=== PATIENT | female | born 1950 | race Caucasian/White ===

== ENCOUNTER 2018-04-23 20:00 | Emergency (ER) | payer MEDICARE, OTHER, SELFPAY ==
[2018-04-23 20:01] VITALS: BP 171/108; PULSE 112; RESP 18; TEMP 36.4; O2SAT 97; BMI 43.5
--- NOTE | 2018-04-23 20:18 | ED.VISSUMM ---
- ER Visit Summary Date of Service: 04/23/18 Chief Complaint: Holding back of right knee concern for DVT History of Present Illness: The patient is a 68 F with no past medical history who presents with pain behind the right knee. She had a long distance flight to [place] last week. She returned yesterday. She complains of pain in the posterior aspect of the right knee. She denies shortness of breath. She denies difficulty breathing. Denies pleuritic chest pain or any type of chest pain. She has no history of PE or DVT. She has no other complaints Physical Examination: Vital signs remarkable for an elevated blood pressure 171/108. Heart rate is document of 112. She appears no distress. She is afebrile. There is no swelling, asymmetry or discoloration of the right lower extremity compared to left. There is no leg vein distention, palpable cords toes on the diffusion deep venous system. She has tenderness over the short and long head of the biceps for Magdiel muscle. She complains of pain with movement in that area. The patella is not ballotable. There is no effusion. She has full extension and flexion. There is no motor weakness with flexion extension at the knee. Distal pulses are palpable. Test Results: None Emergency Department Course and Treatment: Well score for DVT is -2. Since she has tenderness specifically over the long and short head the biceps for Magdiel tendon treatment is anti-inflammatory ice and follow-up with physician. Her blood pressure is elevated and will need reassessed in 1-2 weeks and she is asymptomatic. Since she is asymptomatic no testing is indicated. Treatment Plan: Rest, ice and anti-inflammatory and follow-up with PCP Disposition: Discharged to home with Impression: Tendinitis biceps for Magdiel right lower extremity This note was generated with [employer] dictation software. It may contain incorrect words, spelling, and punctuation that were not noted in review of the chart prior to signing ED Disposition - Plan for ED Patient: Disposition: Home or Assisted Living Chief Complaint: Lower Extremity Injury Instructions: ED Strain Muscle Ext, ED Hypertension Poss Referrals: Negra Arredondo MD [COURTESY STAFF PHYSICIAN] - 1-2 Weeks
[2018-04-23 20:45] VITALS: BP 187/94; PULSE 78; RESP 16; O2SAT 100
== END 2018-04-23 20:46 | disposition home or self-care (01) ==
PROVIDERS: Emergency Provider Emergency Medicine; Family Provider Internal Medicine; PCP Internal Medicine
DX: M76.891 Other specified enthesopathies of right lower limb, excluding foot (principal); E66.9 Obesity, unspecified
CPT/HCPCS: 99282

== ENCOUNTER 2018-05-17 18:54 | Emergency (ER) | payer MEDICARE, OTHER, SELFPAY ==
[2018-05-17 18:56] VITALS: BP 206/97; PULSE 114; RESP 18; TEMP 37.5; O2SAT 94; BMI 43.3
--- NOTE | 2018-05-17 19:53 | CT_ITS ---
STUDY: CT ABDOMEN AND PELVIS WITH CONTRAST REASON FOR EXAM: Female, 68 years old. Right lower quadrant pain. Elevated white blood count. RADIATION DOSAGE (If Supplied By Facility): CTDIvol = ( 23.73 ) mGy, DLP = ( 1249.93 ) mGycm TECHNIQUE: Transaxial images were obtained from the dome of the diaphragm to the symphysis pubis with oral contrast. 100ML ml of Isovue 300 contrast was administered. Sagittal and coronal images were reconstructed. Individualized dose optimization techniques were used for this CT. COMPARISON: None. FINDINGS: The visualized lung bases are unremarkable. The visualized portions of the heart are within normal limits. Normal liver. There is a 1.4 cm gallstone in the neck of the gallbladder without gallbladder distention or biliary ductal dilatation. Normal spleen. Normal pancreas. Normal bilateral adrenal glands. Normal right kidney. Normal right ureter. There is a 3 mm nonobstructing calculus in the mid left kidney. There is no hydronephrosis. Normal left ureter. Normal visualized stomach. Normal small intestine. Is diffuse stranding about the cecum is involves the terminal Lorenzo. The appendix is not clearly identified although the inflammatory process may represent a appendiceal abscess. There is diffuse atherosclerotic calcification of the abdominal aorta, without a demonstrated aneurysm. Normal inferior vena cava. Normal retroperitoneum. Normal urinary bladder. Normal uterus and ovaries. There is no pelvic lymphadenopathy. No free air or free fluid is seen within the peritoneal cavity. There is an umbilical hernia of omental fat. Normal osseous structures. CT/Abdomen/Pelvis WITH Contrast IMPRESSION: 1. Marked inflammatory process about the cecum and terminal ileum. The appendix is not identified. The findings are suggestive of appendiceal abscess. 2. Nonobstructing left renal calculus. N.B. : The above information has been verbally conveyed by Shiraz Linares DO to Jaci Baer MD, MD, on 05/17/2018 23:15:24 (ET). Electronically Signed: Shiraz Linares DO at 23:12 EST Tel [phone], Service support ,
[2018-05-17 20:28] LABS: Absolute Lymphocyte Count 0.88 X10^3/ul (0.83-4.51); Anion Gap 8 (5-15); BUN 7 mg/dL (7-18); BUN/Creat Ratio 7.7 RATIO (10-20); Basophil# 0.02 X10^3/uL; Basophil% 0.1 % (0-1); Calcium,Total 9.2 mg/dL (8.5-10.1); Chloride 98 mmol/L (98-107); Creatinine, Serum 0.91 mg/dL (0.55-1.02); EST Glomerular Filtration Rate 65 mL/min (>60); Eosinophil# 0.03 X10^3/uL; Eosinophils% 0.2 % (0-5); Est Glom Filt Rate - Afr Amer 79 mL/min (>60); Estimated Creatinine Clearance 55.94 ml/min; Glucose 178 mg/dL (74-106); Hematocrit 40.4 % (37-47); Hemoglobin 13.1 g/dl (12.0-15.0); Lymphocyte # 0.88 X10^3/ul (4.0); Lymphocyte % 4.7 % (19-41); Mean Corp Hgb Conc 32.4 g/gl (32-36); Mean Corpuscular Hgb 27.8 pg (27.0-32.0); Mean Corpuscular Volume 85.6 fL (81-99); Mean Platelet Vol. 9.3 fl (6.2-12.0); Monocyte% 4.8 % (0-10); Platelet Count 306 K/mm3 (150-450); Potassium 3.7 mmol/L (3.5-5.1); RBC Distribution Width SD 42.9 fl (35.1-43.9); Red Blood Count 4.72 M/mm3 (4.2-5.4); Sodium Level 134 mmol/L (136-145); White Blood Count 18.9 K/mm3 (4.4-11.0)
[2018-05-17 20:29] LABS: Bacteria 0 SEEN /hpf (None Seen); Mucous, Urine 0 SEEN /hpf (<or=2+); White Blood Cells 0 SEEN /hpf (0-5)
[2018-05-17 20:29] LABS: POSITIVE COUNT NO; POSITIVE DIFFERENTIAL NO; POSITIVE MORPHOLOGY NO
[2018-05-17 20:34] LABS: Color, Urine Yellow (Yellow); Glucose, Dipstick Normal (Normal); Ketone-Dipstick Negative (Negative); Leukocyte Esterase-Dipstick Negative /ul (Negative); Nitrite-Dipstick Negative (Negative); Occult Blood-Urine 10 /ul (Negative); Protein-Dipstick Negative (Negative); Specific Gravity, Urine 1.005 (1.002-1.030); Urine Bilirubin Dipstick Negative (Negative); Urine Clarity Clear (Clear); Urine Urobilinogen Normal (Normal)
[2018-05-17 20:44] LABS: Red Blood Cells-Urine 0-5 SEEN /hpf (0-5); Squamous Epithelial Cells - UA 0-5 SEEN /hpf (5-10)
[2018-05-17] MEDS: 0.9% Normal Saline 1,000 ML 150 ML IV (20:51)
[2018-05-17 21:09] VITALS: BP 190/73; PULSE 89; RESP 18; O2SAT 95
[2018-05-17] MEDS: Morphine 4 MG/ML Syringe IV (22:06)
[2018-05-17] MEDS: Ondansetron 4 MG/2 ML Vial IV (22:06)
[2018-05-17 23:26] VITALS: BP 146/58; PULSE 95; RESP 16; O2SAT 94
--- NOTE | 2018-05-17 23:48 | ED.DCSUM_ITS ---
- ER Visit Summary Date of Service: 05/17/18 Chief Complaint: Abdominal pain History of Present Illness: The patient is a 68 F with lower abdominal pain, worse in the right lower quadrant, intermittently for the past 2 weeks. Over the past 2 days pain is been progressively worsening. She reports some chills but no fever. She had some nausea but no vomiting. No urinary symptoms. Physical Examination: Vital signs on arrival include a blood pressure of 206/97, temperature 99.5, heart rate 114, respiratory rate 18, pulse ox 94% on room air. Patient is sitting upright in bed. She is in no acute distress and is nontoxic appearing. Head neck examination is normal. Heart is regular rate and rhythm. Lung sounds are clear. Abdomen is soft with tenderness in the right lower quadrant. There is no guarding or rebound. Hypoactive bowel sounds are noted throughout. Test Results: CBC was a white count of 18.9 with 90% neutrophils. Chemistry studies significant for glucose of 178. Urinalysis is unremarkable. CT abdomen pelvis with IV and p.o. contrast reveals diffuse stranding around the cecum involving the terminal ileum. The appendix is not clearly identified although inflammatory process may represent appendiceal abscess. Emergency Department Course and Treatment: Patient initially declined pain medication, but upon returning from CT he did request something. She was given morphine and Zofran. Test results were discussed with patient and . IV Zosyn has been ordered. Repeat blood pressure at this time is 146/58 with a heart rate of 95. I spoke with Dr. Hernandez, on-call for surgery. She advises that they will still sometimes place a CT-guided drain even though there is not a focal fluid collection and this would not be available at this facility. I attempted to contact the other surgery group in town as the patient wished to stay here, but I was advised that they would not speak with me unless the patient was already established with them. Patient was discussed with the transfer line at [facility]. Patient has been accepted by Dr. Layton and will go to the emergency room at [facility]. Treatment Plan: [] Disposition: Transfer Impression: Appendiceal abscess This note was generated with [employer] dictation software. It may contain incorrect words, spelling, and punctuation that were not noted in review of the chart prior to signing ED Disposition - Plan for ED Patient: Chief Complaint: Abd Pain Referrals: Care Physician,No Primary [Primary Care Provider] -
[2018-05-18] MEDS: Ondansetron 4 MG/2 ML Vial IV (00:35)
[2018-05-18] MEDS: Morphine 4 MG/ML Syringe IV (00:35)
--- NOTE | 2018-05-18 00:42 | ED.RN ---
0022: attempted to give report to [facility] er and was on hold for 6 minutes with no one answering the phone to give report to. will attempt to call back.
== END 2018-05-18 01:00 | disposition short-term general hospital (02) ==
PROVIDERS: Emergency Provider Emergency Medicine
DX: K35.33 Acute appendicitis with perforation, localized peritonitis, and gangrene, with abscess (principal); E66.9 Obesity, unspecified
CPT/HCPCS: 74177; 80048; 81001; 85025; 96361; 96365; 96366; 96375; 96376; 99284; J7030; Q9967; A4216; J2405

== ENCOUNTER → 2018-06-25 13:33 | Outpatient (CLI) | payer MEDICARE, OTHER, SELFPAY ==
[2018-06-05 14:04] VITALS: BMI 43.3
--- NOTE | 2018-06-25 13:36 | CT_ITS ---
STUDY: CT ABDOMEN AND PELVIS WITH CONTRAST REASON FOR EXAM: Female, 68 years old. Appendiceal abscess. RADIATION DOSAGE (If Supplied By Facility): CTDIvol = ( 17.59 ) mGy, DLP = ( 1063.17 ) mGycm TECHNIQUE: Transaxial images were obtained from the dome of the diaphragm to the symphysis pubis without oral contrast. 100ML ml of Isovue 300 contrast was administered. Sagittal and coronal images were reconstructed. Individualized dose optimization techniques were used for this CT. COMPARISON: May 17, 2018 FINDINGS: The visualized lung bases are unremarkable. There are coronary artery calcifications present. Normal liver. There is a gallstone within the gallbladder. Normal spleen. Normal pancreas. Normal bilateral adrenal glands. Normal right kidney. There is a nonobstructing 3.2 mm calculus within the left kidney. There is a small hiatal hernia. Normal small intestine. Normal colon. There is interval resolution of the inflammation within the right lower quadrant visualized on the prior examination. There is mild appendiceal wall thickening. There is diffuse atherosclerotic calcification of the abdominal aorta, without a demonstrated aneurysm. Normal inferior vena cava. Normal retroperitoneum. Normal urinary bladder. There is a small umbilical hernia containing fat. There are diffuse degenerative changes of the visualized lumbar spine. CT/Abdomen/Pelvis WITH Contrast IMPRESSION: Interval resolution of right lower quadrant inflammation. Mild appendiceal wall thickening consistent with prior inflammation. Cholelithiasis. Nonobstructing 3.2 mm left renal calculus. Atherosclerosis. Umbilical hernia. Electronically Signed: Danna Lake MD at 16:49 EST Tel , Service support ,
== END ==
PROVIDERS: Family Provider Family Medicine; PCP Family Medicine; Referring Provider Surgery; Visit Provider Surgery
DX: R93.5 Abnormal findings on diagnostic imaging of other abdominal regions, including retroperitoneum (principal)
CPT/HCPCS: 74177; Q9967

== ENCOUNTER 2018-07-10 11:22 | Day surgery (SDC) | payer MEDICARE, OTHER, SELFPAY ==
[2018-06-28 09:44] VITALS: BMI 43.3
--- NOTE | 2018-07-10 | APP_PTH ---
PATIENT: MAURY PEREZ [place] [facility] [id number] AGE/SX: 68/F ROOM: RE07/10/[address]: Dr. Yamila Hernandez MD : [id number] BED: DIS: 07/10/2018 SPEC #: [id number] RECD: 07/11/18 08:36 STATUS: OSIEL REQ #: [id number] JOE: 07/10/18 00:[address]: Yamila Hernandez DEPT: SURGICAL PATHOLOGY RECD BY: Fahad Auguste ENTERED: 07/11/18 08:36 SP TYPE: APPENDIX OTHR DR: Dr. Aubree Garnett MD Tissues: Appendix, NOS Procedures: Surgery Specimen Level III HEADER OPERATION: Laparoscopic appendectomy, poss open, poss bowel resection PRE-OP DIAGNOSIS: Appendicitis with perforation TISSUE SUBMITTED: Appendix MICROSCOPIC DIAGNOSIS Appendix: Appendix with focal hyperplastic changes. Focal chronic inflammation. SJ:ishmael 2/25/19 COMMENT Transmural chronic inflammation (including eosinophils) is noted in the appendicular wall. Finding may represent subacute appendicitis. Periappendiceal adipose tissue also shows focal chronic inflammation including a few giant cells. Clinical correlation and appropriate follow up are necessary. Case has been reviewed in consultation with Dr. Feng who concurs with the above diagnosis. IDC:AM MICROSCOPIC DESCRIPTION Slides are reviewed. GROSS DESCRIPTION Received is one container labeled with the patient's name and designated appendix. The specimen consists of a vermiform appendix measuring 5.5 cm in length and 1 cm in average diameter. No gross perforations are evident. Serial sections reveal a patent lumen. Director Of Parks [employer] sections are submitted in one cassette. / AM:rg 07/11/18 The remainder of the specimen is totally submitted in cassettes 2 and 3. / AM:rg 07/12/18 TC:5 CPT: 52142
--- NOTE | 2018-07-10 11:34 | EKG12_ITS ---
Test Reason : PREOP Blood Pressure : / mmHG Vent. Rate : 085 BPM Atrial Rate : 085 BPM P-R Int : 178 ms QRS Dur : 078 ms QT Int : 376 ms P-R-T Axes : 024 018 037 degrees QTc Int : 447 ms Normal sinus rhythm Normal ECG No previous ECGs available Confirmed by EVA BACA, ELLA ([id number]), science editor DEANA TIRADO ([id number]) on 07/15/2018 5:37:53 PM Referred By: Yamila Hernandez Confirmed By:ELLA VELASQUEZ MD
[2018-07-10 11:52] VITALS: BP 165/73; PULSE 90; RESP 18; TEMP 37.2; BMI 42.0
--- NOTE | 2018-07-10 16:13 | PCM.OPRPT ---
Report of Operation Date of Procedure: 07/10/18 Pre-Operative Diagnosis: Perforated appendicitis Post-Operative Diagnosis: Same Surgery/Procedure Performed:: Interval laparoscopic appendectomy police superintendent: Yvette Cleveland Type of Anesthesia:: General/Supplemental Anesthesiologist: Harjit Curran Special Medications: Cefotetan 2 g IV x1 Specimen's removed: Appendix Estimated Blood Loss (mL): <20 cc Fluids Replaced: 1200 cc Description of Procedure: Indications: 68-year-old female presented for an interval appendectomy after having perforated appendicitis treated with antibiotics. Patient's repeat CAT scan did show improvement of the information in the right lower quadrant prior to laparoscopic appendectomy. Description of the procedure: The patient was placed on operating table in supine position. General anesthesia was induced. A timeout was completed verifying correct patient, procedure, sacrum position and special, prior to beginning procedure. A Rosa catheter was placed. Abdomen was prepped and draped in usual sterile fashion. Incision was made in the natural skin line above the umbilicus with a 15 blade scalpel. The fascia was elevated and incised. Entry into the peritoneum was confirmed visually and no bowel was noted in the vicinity of the incision. The Guthrie trocar was placed under direct vision. Abdomen insufflated with a pressure of 12-15 mmHg. Patient tolerated insertion well. The scope was inserted and the abdomen inspected. No injuries from initial trocar placement were noted. Minimal amount of fluid was seen in the right lower quadrant. An direct visualization 2 -5 mm trocars were placed one above the symphysis pubis and below the hairline and one in the left lower quadrant lateral to the rectus muscle. Care is taken to avoid injury to the bladder and inferior epigastric vessels. The table was placed in Trendelenburg position with the right side elevated. The cecum was stuck to the RLQ abdominal wall due to adhesion, which were able to be freed with gentle traction. The appendix was in a loop formation with the tip with dense adhesions near the base of the appendix. These adhesions were carefully taken down with gentle traction and sharp dissection. The Enseal was also used to go through the mesoappendix. The appendix was grasped with atraumatic grasper and elevated. It was noted to be mildly thickened. An endoscopic 45 mm linear cutting stapler blue load was then used to divide and staple the base of the appendix. The appendix was withdrawn into the Guthrie trocar after being placed endoscopically retrieval bag. Appendix was sent to pathology. The appendiceal stump was then irrigated and hemostasis was assured. Fluid was suctioned no other pathology was identified. Secondary trochars were removed under direct visualization. No bleeding was noted trocar sites. The laparoscope withdrawn and the umbilical trocar removed. The abdomen was allowed to collapse. Local anesthesia of 30 mL of 0.5% Marcaine was used at the incision sites. The umbilical trocar site was closed with the [id number] 0 Vicryl suture. The skin was closed up to clear sutures of 4-0 Monocryl and Steri-Strips. The patient was extubated. The patient tolerated the procedure well and was taken to the postanesthesia care unit in satisfactory condition. - Complications none - Admit VTE Documentation VTE Present on Admission: Yes VTE Mechan Device Prophylaxis: SCD's
--- NOTE | 2018-07-10 16:18 | PCM.DC.APPY ---
Discharge Diet: Light diet - advance as tolerated Discharge Activity: May not drive while taking narcotic pain medications. May shower in (days): 1 Ice area for (Minutes): 20 - PRN Lifting Restrictions: no lifting >20 lb for 4 weeks Call your doctor if your incision/area has: Continuous Slow Oozing, Sudden Increased Bleeding, Increased Pain/ Swelling, Increased Redness, Foul Smelling Discharge, Swelling at the incision site Call your doctor if you observe: Fever of 101 or Higher Remove Dressing in (days):: 1 Additional Instructions: Okay to take ibuprofen 400-600 mg PO q6hr PRN (can also use Motrin or Advil) along with the Percocet. Avoid Tylenol since there is already Tylenol in the Percocet. Take all pain meds with food. Percocet can cause constipation recommend taking daily stool softener (i.e. Colace/docusate) while taking the pain meds. Recommend starting some MiraLAX in 2 days if no bowel movement. If still no bowel movement the following day recommend taking magnesium citrate half the bottle and waiting 4-6 hours if still no results take the other half the bottle. Medications to take at Discharge lisinopril 20 mg-hydrochlorothiazide 25 mg tablet 1 tab PO DAILY 06/28/18 Oxycodone HCl/Acetaminophen [Percocet 5/325] 1 - 2 tablet PO Q6H PRN PRN 4 Days #20 tablet 07/10/18 Allergies/Adverse Reactions: Allergies No Known Allergies Allergy (Verified 07/10/18 11:47) The following prescriptions were given: Oxycodone HCl/Acetaminophen [Percocet 5/325] 1 - 2 tablet PO Q6H PRN PRN 4 Days #20 tablet PRN Reason: Pain Primary Care Physician: Aubree Garnett MD [Primary Care Provider] - Test Results: Test results from this visit will be discussed in further detail at your follow-up appointment, if applicable. Please Follow Up With: Yamila Hernandez MD - After 5 PM/weekends call [phone] with any concerns When: Call the office for a follow-up appointment in 2 weeks. Proposed Discharge Date: 07/10/18
[2018-07-10] MEDS: Bupiv/Epi 0.5% Mpf 30 ML Vial (16:20)
--- NOTE | 2018-07-10 16:21 | DCINST_ITS ---
Discharge Diet: Light diet - advance as tolerated Discharge Activity: May not drive while taking narcotic pain medications. May shower in (days): 1 Ice area for (Minutes): 20 - PRN Lifting Restrictions: no lifting >20 lb for 4 weeks Call your doctor if your incision/area has: Continuous Slow Oozing, Sudden Increased Bleeding, Increased Pain/ Swelling, Increased Redness, Foul Smelling Discharge, Swelling at the incision site Call your doctor if you observe: Fever of 101 or Higher Remove Dressing in (days):: 1 Additional Instructions: Okay to take ibuprofen 400-600 mg PO q6hr PRN (can also use Motrin or Advil) along with the Percocet. Avoid Tylenol since there is already Tylenol in the Percocet. Take all pain meds with food. Percocet can cause constipation recommend taking daily stool softener (i.e. Colace/docusate) while taking the pain meds. Recommend starting some MiraLAX in 2 days if no bowel movement. If still no bowel movement the following day recommend taking magnesium citrate half the bottle and waiting 4-6 hours if still no results take the other half the bottle. Medications to take at Discharge lisinopril 20 mg-hydrochlorothiazide 25 mg tablet 1 tab PO DAILY 06/28/18 Oxycodone HCl/Acetaminophen [Percocet 5/325] 1 - 2 tablet PO Q6H PRN PRN 4 Days #20 tablet 07/10/18 Allergies/Adverse Reactions: Allergies No Known Allergies Allergy (Verified 07/10/18 11:47) The following prescriptions were given: Oxycodone HCl/Acetaminophen [Percocet 5/325] 1 - 2 tablet PO Q6H PRN PRN 4 Days #20 tablet PRN Reason: Pain Primary Care Physician: Aubree Garnett MD [Primary Care Provider] - Test Results: Test results from this visit will be discussed in further detail at your follow- up appointment, if applicable. Please Follow Up With: Yamila Hernandez MD - After 5 PM/weekends call [phone] with any concerns When: Call the office for a follow-up appointment in 2 weeks. Proposed Discharge Date: 07/10/18
[2018-07-10 16:38] VITALS: BP 160/59; BP 165/73; PULSE 55; RESP 16; TEMP 36.1; O2SAT 96
[2018-07-10 16:45] VITALS: BP 138/59; BP 165/73; PULSE 55; RESP 16; O2SAT 97
[2018-07-10 17:00] VITALS: BP 133/62; BP 165/73; PULSE 55; RESP 16; O2SAT 98
[2018-07-10 17:15] VITALS: BP 125/67; BP 165/73; PULSE 51; RESP 18; TEMP 36.2; O2SAT 94
[2018-07-10] MEDS: Acetaminophen 325 MG Tablet PO (17:54)
[2018-07-10] MEDS: oxyCODONE 5 MG Tablet PO (17:54)
[2018-07-10 19:05] VITALS: BP 132/62; BP 165/73; PULSE 56; RESP 18; TEMP 36.8; O2SAT 96
== END 2018-07-10 19:05 | disposition home or self-care (01) ==
LOC: SDC 11:22 → AC 11:24
PROVIDERS: Family Provider Family Medicine; PCP Family Medicine; Referring Provider Surgery; Visit Provider Surgery
PROC: 0DTJ4ZZ Resection of Appendix, Percutaneous Endoscopic Approach (ICD-10-PCS; CPT 44970; principal; 2018-07-10 12:40)
DX: K35.32 Acute appendicitis with perforation, localized peritonitis, and gangrene, without abscess (principal); I10 Essential (primary) hypertension; Z87.891 Personal history of nicotine dependence; Z79.899 Other long term (current) drug therapy
CPT/HCPCS: 44970; 88304; 93005; J7120; C1760

== ENCOUNTER 2018-09-23 07:04 | Day surgery (SDC) | payer MEDICARE, OTHER, SELFPAY ==
[2018-08-28 13:40] VITALS: BMI 42.0
--- NOTE | 2018-08-28 13:40 | HP_ITS ---
Intake Vital Signs 08/28/18 Height 5 ft 5 in 08/28/18 Weight: 277 lb 08/28/18 Body Mass Index (BMI) 46.0 08/28/18 Blood Pressure 113/76 08/28/18 Blood Pressure Location Lt brachial 08/28/18 Blood Pressure Position Sitting 08/28/18 Respiratory Rate 18 08/28/18 Pulse Rate 81 Intake Visit Reasons: Discuss C-Scope Chief Complaint: abnormal abdominal CT Casting Machine Set Up Operator Required: No Is patient in pain?: No Allergies No Known Allergies Allergy (Verified 08/28/18 13:05) Medications lisinopril 20 mg-hydrochlorothiazide 25 mg tablet 1 tab PO DAILY 06/28/18 [History Confirmed 08/28/18] PFSH Medical History Hemorrhoid (Acute) Psoriasis (Acute) HTN (hypertension) (Chronic) Surgical History S/P appendectomy (Acute) History of tubal ligation (Acute) Family History Mother Cancer uterine Brother Hypertension Social History Smoking Status: Former smoker HPI HPI HPI: MAURY PEREZ, is a 68 F who presents to the office today for HPI HPI Surgical H&P: Yes HPI: MAURY PEREZ, is a 68 F who presents to the office today for screening colonoscopy. Patient is status post interval appendectomy about 6 weeks ago for acute cholecystitis that was treated just with IV antibiotics initially. Patient has never had screening colonoscopy. Patient states she has bowel movements daily denies any blood denies any family history of colon cancer. ROS General General: No weight change, appetite, fatigue, colon cancer, breast cancer or weakness HEENT HEENT: No difficulty swallowing, eye injury, eye surgery, swollen glands or hoarseness Endo Endocrine: No thyroid disease, diabetes mellitus, thyroid cancer, Hair loss, heat intolerance or cold intolerance Skin Skin: No rash or changing moles Additional Details: Psoriasis Cardio Cardiovascular: Yes high blood pressure; no murmur, pacemaker, heart disease, atrial fibrillation, heart attack, heart stent, palpitations, shortness of breat with exertion or chest pain Resp Respiratory: No shortness of breath, No sleep apnea, No cough, No COPD, No asthma, No emphysema, No wheezing Gastro Gastrointestinal: Yes abdominal pain, No nausea or vomiting, No diarrhea, No constipation, No blood in stool, No acid reflux, Yes hemorrhoids, No ulcers, No gallbladder problem, No black,tarry stools Tad Hematologic: No blood thinners, No blood disorders, No bleeding, No anemia, No blood clots Neuro Neurologic: No weakness Exam Const General: cooperative, comfortable, no acute distress Resp Effort & Inspection: normal respiratory effort Cardio Rate: regular rate Heart Sounds: no murmurs GI Inspection: non-distended Palpation: soft, no guarding, nontender Assessment & Plan Problems 1. Encounter for screening for malignant neoplasm of colon Z12.11 2. S/P laparoscopic appendectomy Z90.49 Plan I have discussed the above with the patient. I have offered the patient colonoscopy for evaluation. I have explained the risks/benefits of the procedure and described the procedure. I have discussed the risks with the patient, including but not limited to: infection, bleeding, perforation of the GI tract requiring emergency surgery, inability to complete the procedure, injury to any internal organs, complications of anesthesia, etc. - the patient understands and agrees to proceed. I have answered all the patient's questions to the patient's satisfaction and the patient has no further questions. The patient has been given instructions for the colon cleansing preparation. 1 day of clears, MiraLAX Dulcolax split prep. Yamila Hernandez M.D. Pager: [phone] [facility] [address] [place] [address], [address] [place] [address] Office: [phone] Plan Detail Follow Up We will schedule colonoscopy Coding Level of Care Code Off vis,est,level 3 Diagnoses Encounter for screening for malignant neoplasm of colon Z12.11 S/P laparoscopic appendectomy Z90.49 08/28/18 1340 <Electronically signed by Yamila Hernandez MD> Date Yamila Hernandez MD I have re-examined the patient. There are no clinical changes since date of exam.
[2018-09-23 07:21] VITALS: BP 156/55; PULSE 78; RESP 16; TEMP 36.2; O2SAT 99; BMI 42.7
[2018-09-23 08:15] VITALS: BP 116/57; BP 156/55; PULSE 67; RESP 16; TEMP 36.7; O2SAT 97
--- NOTE | 2018-09-23 08:19 | OP.ENDO_ITS ---
09/23/2018 Aubree Garnett [place] [id number] [place] [address] Re : Colonoscopy procedure for Adal Biswas Dear Dr. Garnett This procedure was performed on Sunday, September 23, 2018. My impressions and recommendations are as follows: Impressions : - Residual external hemorrhoidal tissue found on perianal exam. - Diverticulosis in the ascending colon. - The examination was otherwise normal on direct and retroflexion views. - No specimens collected. Recommendations : - Discharge patient to home. - High fiber diet. - Continue present medications. - Repeat colonoscopy in 10 years for screening purposes depending on overall health at that time. My findings are described in the full procedure note, which is enclosed. If I can be of further assistance, please feel free to contact me at Doctor phone number(s): , Work: . Sincerely, MD Yamila Pollard MD 09/23/2018 8:19:29 AM This report has been signed electronically.
[2018-09-23 08:20] VITALS: BP 138/67; BP 156/55; PULSE 66; RESP 16; O2SAT 93
[2018-09-23 08:25] VITALS: BP 141/72; BP 156/55; PULSE 70; RESP 16; O2SAT 94
[2018-09-23 08:30] VITALS: BP 139/67; BP 156/55; PULSE 61; RESP 16; TEMP 36.3; O2SAT 93
[2018-09-23 08:49] VITALS: BP 156/55
== END 2018-09-23 08:57 | disposition home or self-care (01) ==
LOC: EN 07:05 → AC 07:05
PROVIDERS: Family Provider Family Medicine; PCP Family Medicine; Referring Provider Surgery; Visit Provider Surgery
PROC: 0DJD8ZZ Inspection of Lower Intestinal Tract, Via Natural or Artificial Opening Endoscopic (ICD-10-PCS; CPT 45378; principal; 2018-09-23 07:55)
DX: Z12.11 Encounter for screening for malignant neoplasm of colon (principal); K57.30 Diverticulosis of large intestine without perforation or abscess without bleeding; K64.4 Residual hemorrhoidal skin tags; I10 Essential (primary) hypertension; Z79.899 Other long term (current) drug therapy; Z87.891 Personal history of nicotine dependence
CPT/HCPCS: G0121; J7120

== ENCOUNTER → 2018-10-22 | Outpatient (CLI) | payer MEDICARE, OTHER, SELFPAY ==
[2018-09-23 07:21] VITALS: BMI 42.7
[2018-10-22 18:01] LABS: Rubella IgG 34.3 IU/mL
[2018-10-25 11:43] LABS: Rubeola IgG Ab > 300.0 AU/mL (Immune >29.9)
== END | disposition home or self-care (01) ==
LOC: LAB.FUTURE 16:13
PROVIDERS: Family Provider Family Medicine; PCP Family Medicine; Visit Provider Family Medicine
DX: Z01.84 Encounter for antibody response examination (principal)
CPT/HCPCS: 36415; 86735; 86762; 86765

== ENCOUNTER → 2019-10-03 07:47 | Outpatient (CLI) | payer MEDICARE, OTHER, SELFPAY ==
[2019-10-02 10:38] VITALS: BMI 42.7
[2019-10-06 13:08] LABS: SAR-COV-2 IGG ANTIBODY Negative (Negative); SAR-COV-2 IGM ANTIBODY Negative (Negative)
== END ==
PROVIDERS: PCP Family Medicine; Visit Provider Family Medicine
DX: Z20.828 Contact with and (suspected) exposure to other viral communicable diseases (principal)
CPT/HCPCS: 36415; 86769

== ENCOUNTER → 2019-10-21 12:32 | Outpatient (CLI) | payer MEDICARE, OTHER, SELFPAY ==
[2019-10-02 10:38] VITALS: BMI 42.7
--- NOTE | 2019-10-21 12:45 | BI_ITS ---
MAMMOGRAPHY - BILATERAL SCREENING REASON FOR EXAM: Female, 69 years old. Routine annual screening examination. PERTINENT HISTORY: Non-contributory. TECHNIQUE: Digital bilateral breast key (3D mammographic acquisition) in the CC and MLO projections. 2-D mediolateral oblique (MLO) and craniocaudad (CC) views of both breasts were obtained. CAD: Full Field Digital Mammography with Computer Added Detection was performed. COMPARISON: No comparison mammograms available at this time. If any prior films become available, an addendum to this report can be generated. FINDINGS: Breast Composition: There are scattered areas of fibroglandular density. There are no dominant masses or suspicious calcifications. Scattered bilateral microcalcifications most likely secretory in nature. No focal clustering is seen. Multiple benign appearing bilateral axillary lymph nodes. No other significant abnormalities are identified. There has been no significant change since the prior study. BI/SCREEN MAMM (CAD) W/KEY BILAT IMPRESSION: Stable bilateral screening mammogram. Yearly follow-up mammogram recommended. (A) ASSESSMENT CATEGORY: BIRADS Category 2: Benign. A letter regarding these results will be sent to the patient by the facility within 30 days. Approximately 10% of breast cancers are not detected by mammography. A normal mammogram should not delay biopsy of a clinically suspicious abnormality. [id number] Electronically Signed: Sae Perry, at 14:06 EDT , Service support ,
== END ==
PROVIDERS: PCP Family Medicine; Referring Provider Family Medicine; Visit Provider Family Medicine
DX: Z12.31 Encounter for screening mammogram for malignant neoplasm of breast (principal)
CPT/HCPCS: 77063; 77067

== ENCOUNTER → 2019-11-27 15:02 | Outpatient (CLI) | payer MEDICARE, OTHER, SELFPAY ==
[2019-10-02 10:38] VITALS: BMI 42.7
[2019-11-27 17:03] LABS: Absolute Lymphocyte Count 1.57 X10^3/uL (0.83-4.51); Absolute Neutrophil Count 5.2 X10^3/uL (2.0-7.7); Basophil# 0.03 X10^3/uL; Basophil% 0.4 % (0-1); Eosinophil# 0.28 X10^3/uL; Eosinophils% 3.7 % (0-5); Hematocrit 36.5 % (37-47); Hemoglobin 11.7 g/dL (12.0-15.0); Lymphocyte # 1.57 X10^3/ul (4.0); Lymphocyte % 20.7 % (19-41); Mean Corp Hgb Conc 32.1 g/dL (32-36); Mean Corpuscular Hgb 28.1 pg (27.0-32.0); Mean Corpuscular Volume 87.5 fL (81-99); Mean Platelet Vol. 9.9 fl (6.2-12.0); Monocyte% 6.6 % (0-10); NRBC Flagged by Analyzer 0 % (0-5); Neutrophil # 5.15 X10^3/uL (2.7-7.7); Neutrophil % 68.1 % (47-70); Platelet Count 232 K/mm3 (150-450); RBC Distribution Width CV 14.1 % (11.6-14.6); Red Blood Count 4.17 M/mm3 (4.2-5.4); White Blood Count 7.6 K/mm3 (4.4-11.0)
[2019-11-27 17:25] LABS: ALB/GLOB Ratio 0.9 RATIO (0.9-2.4); AST(SGOT) 16 U/L (15-37); Alanine Aminotransfer ALT/SGPT 31 U/L (13-56); Albumin, Serum 3.7 g/dL (3.2-5.0); Alkaline Phosphatase 78 U/L (45-117); Anion Gap 9 (5-15); BUN 35 mg/dL (7-18); BUN/Creat Ratio 26.9 RATIO (10-20); Calcium,Total 8.6 mg/dL (8.5-10.1); Chloride 101 mmol/L (98-107); Cholesterol 265 mg/dL (200); EST Glomerular Filtration Rate 43 mL/min (>60); Est Glom Filt Rate - Afr Amer 52 mL/min (>60); Globulin 4.3 g/dL (2.2-4.2); Glucose 100 mg/dL (74-106); High Density Lipoprotein 37 mg/dL; Potassium 3.7 mmol/L (3.5-5.1); Sodium Level 138 mmol/L (136-145); Triglycerides 322 mg/dL; Very Low Density Lipoprotein 64 mg/dL (5-40)
[2019-12-03 13:32] LABS: HPV Reflexed? NOT INDICATED
== END ==
PROVIDERS: PCP Family Medicine; Visit Provider Family Medicine
DX: I10 Essential (primary) hypertension (principal); E66.9 Obesity, unspecified; Z12.4 Encounter for screening for malignant neoplasm of cervix
CPT/HCPCS: 36415; 80053; 80061; 85025; 88175; G0145

== ENCOUNTER 2020-01-21 11:31 | Emergency (ER) | payer MEDICARE, OTHER, SELFPAY ==
[2019-10-02 10:38] VITALS: BMI 42.7
[2020-01-21 11:32] VITALS: BP 155/80; PULSE 73; RESP 18; TEMP 36.7; O2SAT 99; BMI 42.7
[2020-01-21 11:36] VITALS: BP 155/80; PULSE 68; RESP 17; O2SAT 98
--- NOTE | 2020-01-21 11:52 | ED.VISSUMM ---
- ER Visit Summary Date of Service: 01/21/20 Chief Complaint: Laceration History of Present Illness: The patient is a [address] Cuevas. She reports that she was walking around in flip-flops in her house and tripped. She cut the bottom of her left foot when she questions whether this may be on a plastic shoe box. She denies any pain. No numbness or weakness. Her tetanus is up-to-date. Review of systems: General: No fever, chills, cold sweats. Cardiovascular: No chest pain, palpitations. Respiratory: No cough, shortness of breath, dyspnea on exertion. Gastrointestinal: No abdominal pain, nausea, vomiting, diarrhea, melena, or hematochezia. Genitourinary: No dysuria, frequency, hematuria. Skin: No rash. Neuro: No headache, numbness, weakness. Physical Examination: Vitals: Stable. Afebrile. General: Well-nourished and well-developed. Head: Normocephalic atraumatic. Neck: Supple, no lymphadenopathy. No JVD. Nontender. Cardiovascular: Regular rate and rhythm. No murmurs. Respiratory: No respiratory distress. Clear to auscultation bilaterally. Abdominal: Soft, nontender, nondistended, normal bowel sounds. No guarding, rebound, or peritoneal signs. Back: Nontender. Extremities: Laceration on the plantar surface of her foot at the union of the proximal phalanx and metatarsal that is the width of her fourth and fifth toes. This is approximately 2 cm laceration on her fourth toe and 1.5 cm laceration on her fifth toe. She is able to flex against resistance. She has normal sensation light touch. She has 1+ dorsalis pedis pulse. There is no active bleeding. Skin: Normal color, no rash. Neurologic: Alert and oriented ?3. Cranial nerves II through XII are intact. Normal strength and sensation. Psych: Normal affect. Test Results: X-ray shows no fracture or foreign body. Emergency Department Course and Treatment: I had a prolonged discussion evaluation about treatment options. She has decided to let this heal by secondary intention. I do feel that that is a reasonable course of action. She had her wound cleansed and a dressing was placed. She was placed in a postop shoe. Treatment Plan: Patient will be discharged with instructions to follow-up with Dr. Hicks in 3 to 5 days for another exam. Return to the emergency department for any worsening symptoms. Disposition: To home in improved and stable condition. Impression: 1. Laceration to left fifth toe, 1.5 cm, not repaired. 2. Laceration left fourth toe, 2 cm, not repaired. This note was generated with [employer] dictation software. It may contain incorrect words, spelling, and punctuation that were not noted in review of the chart prior to signing ED Disposition - Plan for ED Patient: Instructions: ED Laceration Small or Superficial Not Stitched Referrals: Saul Hicks DPM [STAFF PHYSICIAN] - 3-5 Days
--- NOTE | 2020-01-21 11:55 | RAD_ITS ---
STUDY: X-RAY - LEFT FOOT CLINICAL: Female, 70 years old. LAC UNDER LEFT 4 AND 5 TOES TECHNIQUE: 3 view(s) of the foot. COMPARISON: None. FINDINGS: Normal talus, calcaneus, and tarsal bones. Tiny plantar calcaneal enthesophyte. Normal visualized subtalar, talonavicular, calcaneocuboid, tarsal and tarsometatarsal articulations. Normal metatarsi. Normal metatarsophalangeal joint of the great toe. Normal tibial and fibular sesamoid bones. Normal interphalangeal joint of the great toe. Normal phalanges of the great toe. Normal second through fifth metatarsophalangeal joints. Normal interphalangeal joints and phalanges of the lesser toes. The soft tissue structures are unremarkable. RAD/Foot min 3 Views IMPRESSION: Normal x-ray examination of the foot. Electronically Signed: Bienvenido Bah MD at 12:23 EDT Tel , Service support ,
== END 2020-01-21 13:17 | disposition home or self-care (01) ==
LOC: ED 12:05
PROVIDERS: Emergency Provider Emergency Medicine; PCP Family Medicine
DX: S91.119A Laceration without foreign body of unspecified toe without damage to nail, initial encounter (principal); I10 Essential (primary) hypertension; W01.0XXA Fall on same level from slipping, tripping and stumbling without subsequent striking against object, initial encounter
CPT/HCPCS: 73630; 99283

== ENCOUNTER → 2021-01-04 14:36 | Outpatient (CLI) | payer MEDICARE, OTHER, SELFPAY ==
--- NOTE | 2021-01-04 14:50 | RAD_ITS ---
STUDY: X-RAY - RIGHT HAND REASON FOR EXAM: Female, 70 years old. Hand pain. History of gout. TECHNIQUE: 3 view(s) of the hand. COMPARISON: None. FINDINGS: Normal radiocarpal articulation. Normal distal radioulnar joint. Normal visualized carpal bones. Normal carpal articulations Normal carpometacarpal articulation of the thumb. Normal second through fifth carpometacarpal joints. Normal metacarpi. Normal metacarpophalangeal joint of the thumb. Normal interphalangeal joint of the thumb. Normal proximal and distal phalanges of the thumb. Normal metacarpophalangeal joints of the second through fifth fingers. Normal proximal and distal interphalangeal joints of the second through fifth fingers. Normal phalanges of the second through fifth fingers. The soft tissue structures are unremarkable. RAD/Hand Min 3 Views IMPRESSION: Normal x-ray examination of the hand. No acute abnormality, erosive changes or periostitis. Electronically Signed: George Tapia MD at 9:35 EDT , Service support ,
[2021-01-04 16:45] LABS: Absolute Lymphocyte Count 1.29 X10^3/uL (0.83-4.51); Absolute Neutrophil Count 5.5 X10^3/uL (2.0-7.7); Basophil# 0.04 X10^3/uL; Basophil% 0.5 % (0-1); Eosinophils% 3.9 % (0-5); Hematocrit 35.9 % (37-47); Hemoglobin 11.3 g/dL (12.0-15.0); Lymphocyte # 1.29 X10^3/ul (0.83-4.51); Lymphocyte % 16.8 % (19-41); Mean Corp Hgb Conc 31.5 g/dL (32-36); Mean Corpuscular Hgb 26.9 pg (27.0-32.0); Mean Corpuscular Volume 85.5 fL (81-99); Mean Platelet Vol. 9.5 fl (6.2-12.0); Monocyte% 6.5 % (0-10); NRBC Flagged by Analyzer 0 % (0-5); Neutrophil # 5.53 X10^3/uL (2.7-7.7); Neutrophil % 71.9 % (47-70); Platelet Count 242 K/mm3 (150-450); RBC Distribution Width CV 14.5 % (11.6-14.6); RBC Distribution Width SD 44.9 fl (35.1-43.9); White Blood Count 7.7 K/mm3 (4.4-11.0)
[2021-01-04 17:49] LABS: ALB/GLOB Ratio 0.9 RATIO (0.9-2.4); AST(SGOT) 22 U/L (15-37); Alanine Aminotransfer ALT/SGPT 41 U/L (13-56); Albumin, Serum 3.8 g/dL (3.2-5.0); Alkaline Phosphatase 86 U/L (45-117); Anion Gap 6 (5-15); BUN 16 mg/dL (7-18); BUN/Creat Ratio 19.1 RATIO (10-20); Chloride 108 mmol/L (98-107); Cholesterol 251 mg/dL (200); Creatinine, Serum 0.84 mg/dL (0.55-1.02); EST Glomerular Filtration Rate 71 mL/min (>60); Est Glom Filt Rate - Afr Amer 86 mL/min (>60); Globulin 4.3 g/dL (2.2-4.2); Glucose 95 mg/dL (74-106); High Density Lipoprotein 39 mg/dL; Protein, Total 8.1 g/dL (6.4-8.2); Sodium Level 140 mmol/L (136-145); Triglycerides 234 mg/dL; Uric Acid 7.3 mg/dL (2.6-6.0); Very Low Density Lipoprotein 47 mg/dL (5-40)
== END ==
PROVIDERS: PCP Family Medicine; Referring Provider Family Medicine; Visit Provider Family Medicine
DX: Z00.00 Encounter for general adult medical examination without abnormal findings (principal); M10.9 Gout, unspecified; I10 Essential (primary) hypertension
CPT/HCPCS: 36415; 73130; 80053; 80061; 84550; 85025

== ENCOUNTER → 2021-10-20 | Outpatient (CLI) | payer MEDICARE, OTHER, SELFPAY | END | disposition home or self-care (01) | LOC: LAB.FUTURE 09:43 | PROVIDERS: PCP Family Medicine; Visit Provider Family Medicine | DX: Z00.00 Encounter for general adult medical examination without abnormal findings (principal); M10.9 Gout, unspecified; I10 Essential (primary) hypertension ==

== ENCOUNTER → 2021-12-23 | Outpatient (CLI) | payer MEDICARE, OTHER, SELFPAY ==
[2021-12-23 17:36] LABS: Absolute Lymphocyte Count 1.47 X10^3/uL (0.83-4.51); Basophil# 0.05 X10^3/uL; Basophil% 0.8 % (0-1); Eosinophil# 0.26 X10^3/uL; Eosinophils% 4.1 % (0-5); Hematocrit 40.9 % (37-47); Hemoglobin 12.9 g/dL (12.0-15.0); Lymphocyte # 1.47 X10^3/ul (0.83-4.51); Mean Corp Hgb Conc 31.5 g/dL (32-36); Mean Corpuscular Hgb 27.2 pg (27.0-32.0); Mean Corpuscular Volume 86.3 fL (81-99); Mean Platelet Vol. 9.8 fl (6.2-12.0); Monocyte# 0.59 X10^3/uL; Monocyte% 9.2 % (0-10); NRBC Flagged by Analyzer 0 % (0-5); Neutrophil % 62.6 % (47-70); Platelet Count 233 K/mm3 (150-450); RBC Distribution Width CV 14.5 % (11.6-14.6); RBC Distribution Width SD 45.4 fl (35.1-43.9); Red Blood Count 4.74 M/mm3 (4.2-5.4); White Blood Count 6.4 K/mm3 (4.4-11.0)
[2021-12-23 17:52] LABS: ALB/GLOB Ratio 0.8 RATIO (0.9-2.4); AST(SGOT) 14 U/L (15-37); Alanine Aminotransfer ALT/SGPT 34 U/L (13-56); Albumin, Serum 3.8 g/dL (3.2-5.0); Alkaline Phosphatase 73 U/L (45-117); Anion Gap 5 (5-15); BUN 21 mg/dL (7-18); Calcium,Total 9.2 mg/dL (8.5-10.1); Chloride 103 mmol/L (98-107); Cholesterol 261 mg/dL (200); Creatinine, Serum 0.88 mg/dL (0.55-1.02); EST Glomerular Filtration Rate 67 mL/min (>60); Est Glom Filt Rate - Afr Amer 81 mL/min (>60); Globulin 4.5 g/dL (2.2-4.2); Glucose 88 mg/dL (74-106); High Density Lipoprotein 44 mg/dL; Protein, Total 8.3 g/dL (6.4-8.2); Sodium Level 138 mmol/L (136-145); Triglycerides 207 mg/dL; Uric Acid 6.9 mg/dL (2.6-6.0); Very Low Density Lipoprotein 41 mg/dL (5-40)
== END | disposition home or self-care (01) ==
PROVIDERS: PCP Family Medicine; Referring Provider Family Medicine; Visit Provider Family Medicine
DX: Z00.00 Encounter for general adult medical examination without abnormal findings (principal); M10.9 Gout, unspecified; I10 Essential (primary) hypertension
CPT/HCPCS: 36415; 80053; 80061; 84550; 85025

== ENCOUNTER → 2022-03-15 | Outpatient (CLI) | payer MEDICARE, OTHER, SELFPAY | END | disposition home or self-care (01) | LOC: BFHLAB 09:35 → LABSPEC 09:36 | PROVIDERS: PCP Family Medicine; Visit Provider Family Medicine | DX: Z20.828 Contact with and (suspected) exposure to other viral communicable diseases (principal) | CPT/HCPCS: 87635; U0003; U0005 ==

== ENCOUNTER → 2023-06-12 | Outpatient (CLI) | payer MEDICARE, OTHER, SELFPAY ==
--- OUTSIDE RECORDS SUMMARY | 2023-06-12 12:21 | XMS RPT_ITS | CCD ---
Author Name Unknown Address [address] [place] [address] Organization [facility] Care Team Providers Care Radiologic Technologist Mammogram Name Role Phone LINSEY MCCOY Unavailable Unavailable LINSEY MCCOY Unavailable Unavailable LINSEY MCCOY Unavailable Unavailable LINSEY MCCOY Unavailable Unavailable Problems Problem Classification Problem Date Documented Da te Episodic/Chronic Appendicitis and other appendiceal conditions (3 sources) Appendicitis and other appendiceal conditions; Translations: [Acute appendicitis with perforation and localized peritonitis, with abscess] Onset: 05-18-2018 Unclassified (1 source) Unknown / UNK(Unknown) Onset: 05-18-2018 Results Test Name Value Interpretation Reference Range Facil ity Encounters Encounter Date Encounter Type Care Provider Facility Start: 05-18-2018 End: 05-23-2018 Evaluation and management of inpatient LINSEY MCCOY Facility:[facility] Payers Date Payer Category Payer Unknown [id number] Medicare [id number] Unknown [id number] Summary Purpose Family History No Family History Records FoundNo Family History Records Found Advance Directives No Advanced Directives Records FoundNo Advanced Directives Records Found Additional Source Comments INFORMATION SOURCE (unrecogn ized section and content) DATE CREATED AUTHOR AUTHOR'S ORGANIZ ATION 05/23/2018 [facility] FOR RECORDS PERTAINING TO PATIENTS WHO ARE OR HAVE BEEN ENROLLED IN A CHEMICAL DEPENDENCY/SUBSTANCEABUSE PROGRAM, SOME INFORMATION MAY BE OMITTED. This clinical summary was aggregated from multiple sources. Caution should be exercised in using it in the provision of clinical care. This summary normalizes information from multiple sources, and as a consequence, information in this document may materially change the coding, format and clinical context of patient data. In addition, data may be omitted in some cases. CLINICAL DECISIONS SHOULD BE BASED ON THE PRIMARY CLINICAL RECORDS. [facility]. provides no warranty or guarantee of the accuracy or completeness of information in this document.
[2023-06-12 13:09] LABS: Basophil# 0.04 X10^3/uL; Basophil% 0.6 % (0-1); Eosinophil# 0.26 X10^3/uL; Eosinophils% 4.2 % (0-5); Hematocrit 42.7 % (37-47); Hemoglobin 13.2 g/dL (12.0-15.0); Lymphocyte % 20.9 % (19-41); Mean Corp Hgb Conc 30.9 g/dL (32-36); Mean Corpuscular Hgb 26.7 pg (27.0-32.0); Mean Corpuscular Volume 86.3 fL (81-99); Mean Platelet Vol. 9.5 fl (6.2-12.0); Monocyte# 0.57 X10^3/uL; Monocyte% 9.2 % (0-10); NRBC Flagged by Analyzer 0 % (0-5); Neutrophil # 4.02 X10^3/uL (2.7-7.7); Neutrophil % 64.8 % (47-70); Platelet Count 214 K/mm3 (150-450); RBC Distribution Width CV 14.5 % (11.6-14.6); Red Blood Count 4.95 M/mm3 (4.2-5.4); White Blood Count 6.2 K/mm3 (4.4-11.0)
[2023-06-12 13:58] LABS: ALB/GLOB Ratio 0.8 RATIO (0.9-2.4); AST(SGOT) 17 U/L (15-37); Alanine Aminotransfer ALT/SGPT 31 U/L (13-56); Albumin, Serum 3.7 g/dL (3.2-5.0); Alkaline Phosphatase 89 U/L (45-117); Anion Gap 5 (5-15); BUN 18 mg/dL (7-18); BUN/Creat Ratio 19.5 RATIO (10-20); Calcium,Total 9.7 mg/dL (8.5-10.1); Chloride 104 mmol/L (98-107); Cholesterol 307 mg/dL (200); Creatinine, Serum 0.92 mg/dL (0.55-1.02); EST Glomerular Filtration Rate 63 mL/min (>60); Est Glom Filt Rate - Afr Amer 76 mL/min (>60); Globulin 4.7 g/dL (2.2-4.2); Glucose 113 mg/dL (74-106); High Density Lipoprotein 47 mg/dL; Protein, Total 8.4 g/dL (6.4-8.2); Sodium Level 138 mmol/L (136-145); Triglycerides 235 mg/dL; Uric Acid 7.2 mg/dL (2.6-6.0); Very Low Density Lipoprotein 47 mg/dL (5-40)
== END | disposition home or self-care (01) ==
LOC: LAB 12:01
PROVIDERS: PCP Family Medicine; Referring Provider Family Medicine; Visit Provider Family Medicine
DX: Z00.00 Encounter for general adult medical examination without abnormal findings (principal); M10.9 Gout, unspecified; I10 Essential (primary) hypertension
CPT/HCPCS: 36415; 80053; 80061; 84550; 85025

== ENCOUNTER → 2023-06-26 | Outpatient (CLI) | payer MEDICARE, OTHER, SELFPAY ==
--- NOTE | 2023-06-26 12:33 | BI_ITS ---
MAMMOGRAPHY - BILATERAL SCREENING REASON FOR EXAM: Female, 73 years old. Routine annual screening examination. PERTINENT HISTORY: Non-contributory. TECHNIQUE: Digital bilateral breast key (3D mammographic acquisition) in the CC and MLO projections. 2-D mediolateral oblique (MLO) and craniocaudad (CC) views of both breasts were obtained. CAD: Full Field Digital Mammography with Computer Added Detection was performed. COMPARISON: Comparison is made with prior study dated October 21, 2019. FINDINGS: Breast Composition: There are scattered areas of fibroglandular density. There are no dominant masses or suspicious calcifications. Stable bilateral axillary lymph nodes. Stable bilateral secretory calcifications. No other significant abnormalities are identified. There has been no significant change since the prior study. BI/SCRN MAMM (CAD)W/KEY BILAT IMPRESSION: Stable bilateral screening mammogram. Yearly follow-up mammogram recommended. (A) ASSESSMENT CATEGORY: BIRADS Category 2: Benign. A letter regarding these results will be sent to the patient by the facility within 30 days. Approximately 10% of breast cancers are not detected by mammography. A normal mammogram should not delay biopsy of a clinically suspicious abnormality. [id number] Electronically Signed: Sae Perry MD at 13:20 EST ,
== END | disposition home or self-care (01) ==
LOC: OPBI 12:31
PROVIDERS: PCP Family Medicine; Visit Provider Family Medicine
DX: Z12.31 Encounter for screening mammogram for malignant neoplasm of breast (principal)
CPT/HCPCS: 77063; 77067

== ENCOUNTER → 2023-10-23 | Outpatient (CLI) | payer MEDICARE, OTHER, SELFPAY ==
[2023-10-23 13:32] LABS: AST(SGOT) 18 U/L (15-37); Alanine Aminotransfer ALT/SGPT 26 U/L (13-56); Albumin, Serum 3.5 g/dL (3.2-5.0); Alkaline Phosphatase 81 U/L (45-117); Bilirubin, Direct 0.08 mg/dL (0.00-0.30); Cholesterol 176 mg/dL (200); Globulin 4.4 g/dL (2.2-4.2); High Density Lipoprotein 44 mg/dL; Protein, Total 7.9 g/dL (6.4-8.2); Triglycerides 207 mg/dL; Very Low Density Lipoprotein 41 mg/dL (5-40)
== END | disposition home or self-care (01) ==
LOC: BFHLAB 10:55
PROVIDERS: PCP Family Medicine; Referring Provider Family Medicine; Visit Provider Family Medicine
DX: E78.5 Hyperlipidemia, unspecified (principal)
CPT/HCPCS: 36415; 80061; 80076

== ENCOUNTER → 2024-06-24 | Outpatient (CLI) | payer MEDICARE, OTHER, SELFPAY ==
[2024-06-26 13:07] LABS: QNTFERON TB Mitogen Value > 10.00 IU/mL (.); QNTFERON TB Nil Value 0 IU/mL (.); QNTFERON TB1+ Ag Value 0.02 IU/mL (.); QNTFERON TB2+ Ag Value 0.04 IU/mL (.); QNTIFERON TB Positive Criteria Negative (Negative)
== END | disposition home or self-care (01) ==
LOC: BFHLAB 16:39
PROVIDERS: PCP Family Medicine; Visit Provider Physician Assistant Medical
DX: L40.1 Generalized pustular psoriasis (principal)
CPT/HCPCS: 36415; 86480

== ENCOUNTER → 2024-11-04 | Outpatient (CLI) | payer MEDICARE, OTHER, SELFPAY ==
[2024-11-04 15:49] LABS: Absolute Lymphocyte Count 1.37 X10^3/uL (0.83-4.51); Absolute Neutrophil Count 4.2 X10^3/uL (2.0-7.7); Basophil# 0.04 X10^3/uL; Basophil% 0.6 % (0-1); Eosinophil# 0.23 X10^3/uL; Eosinophils% 3.7 % (0-5); Hematocrit 38.3 % (37-47); Hemoglobin 12.2 g/dL (12.0-15.0); Lymphocyte # 1.37 X10^3/ul (0.83-4.51); Lymphocyte % 21.8 % (19-41); Mean Corp Hgb Conc 31.9 g/dL (32-36); Mean Corpuscular Hgb 27.4 pg (27.0-32.0); Mean Corpuscular Volume 85.9 fL (81-99); Mean Platelet Vol. 10.1 fl (6.2-12.0); Monocyte# 0.44 X10^3/uL; NRBC Flagged by Analyzer 0 % (0-5); Neutrophil # 4.17 X10^3/uL (2.7-7.7); Neutrophil % 66.4 % (47-70); Platelet Count 203 K/mm3 (150-450); RBC Distribution Width CV 14.5 % (11.6-14.6); RBC Distribution Width SD 45.5 fl (35.1-43.9); Red Blood Count 4.46 M/mm3 (4.2-5.4); White Blood Count 6.3 K/mm3 (4.4-11.0)
[2024-11-04 16:54] LABS: ALB/GLOB Ratio 1.2 RATIO (0.9-2.4); AST(SGOT) 20 U/L (<=31); Alanine Aminotransfer ALT/SGPT 24 U/L (<=34); Albumin, Serum 4.1 g/dL (3.4-4.8); Alkaline Phosphatase 80 U/L (35-104); Anion Gap 10 (5-15); BUN 22 mg/dL (4-19); BUN/Creat Ratio 27.1 RATIO (10-20); Calcium,Total 9.3 mg/dL (7.6-11.0); Carbon Dioxide 27.4 mmol/L (21.0-32.0); Chloride 102 mmol/L (98-108); Cholesterol 174 mg/dL (<=200); Creatinine, Serum 0.81 mg/dL (0.70-1.20); EST Glomerular Filtration Rate 76 (>60); Globulin 3.5 g/dL (2.2-4.2); Glucose 109 mg/dL (70-99); High Density Lipoprotein 45 mg/dL; Low Density Lipoprotein Calc. 92 mg/dL; Potassium 4.2 mmol/L (3.3-5.1); Protein, Total 7.6 g/dL (5.9-8.4); Sodium Level 140 mmol/L (133-145); Total Bilirubin 0.36 mg/dL (0.00-1.30); Triglycerides 189 mg/dL; Very Low Density Lipoprotein 38 mg/dL (5-40)
== END | disposition home or self-care (01) ==
LOC: MTLAB 13:05
PROVIDERS: PCP Family Medicine; Referring Provider Family Medicine; Visit Provider Family Medicine
DX: Z00.00 Encounter for general adult medical examination without abnormal findings (principal); M10.9 Gout, unspecified; I10 Essential (primary) hypertension; E78.5 Hyperlipidemia, unspecified
CPT/HCPCS: 36415; 80053; 80061; 84550; 85025